=== PATIENT | male | born 1980 | race Caucasian/White ===

== ENCOUNTER 2023-03-30 17:55 | Emergency (ER) | payer OTHER, SELFPAY ==
[2023-03-30 18:06] VITALS: BP 170/122; PULSE 107; RESP 18; TEMP 37; O2SAT 99; BMI 45.4
--- NOTE | 2023-03-30 18:16 | CRLHL7_ITS ---
For Patients: As a result of the Century Cures Act, medical imaging exams and procedure reports are released immediately into your electronic medical record. You may view this report before your referring provider. If you have questions, please contact your health care provider. INDICATION: Left jaw swelling. TECHNIQUE: CT images of the neck following intravenous contrast. COMPARISON: None. FINDINGS: Diffuse enlargement and hyperenhancement of the left parotid gland. Inflammatory stranding in the left periparotid region. Thickening of the left platysma. No peripherally enhancing collection assessed abscess. No radiopaque stones along the left Stensen duct. Enlarged left level II lymph nodes, likely reactive. The nasopharynx, oropharynx, hypopharynx, and larynx are widely patent and without enhancing lesions. No thickening of the epiglottis or retropharyngeal edema. No enhancing lesions in the oral cavity or floor of mouth. The right parotid and submandibular glands are unremarkable. The thyroid gland is unremarkable. Limited images through the brain are without pathologic intracranial enhancement. Mild paranasal sinus mucosal disease. The mastoid air cells are clear. Mild cervical spondylosis. No aggressive osseous lesions. No concerning opacities in the visualized lungs. IMPRESSION: 1. Diffuse enlargement and hyperenhancement of the left parotid gland, compatible with parotitis. No abscess. No stone along the left Stensen duct. 2. Enlarged left level II lymph nodes, likely reactive. Please note that all CT scans at this facility use dose modulation, iterative reconstruction, and/or weight-based dosing when appropriate to reduce radiation dose to as low as reasonably achievable. Dictated by Easton Tolbert MD @ 03/30/2023 7:29:22 PM (Electronically Signed)
[2023-03-30 18:28] LABS: Basophils Absolute Auto 0.03 K/uL (0.00-0.30); Basophils Percent Auto 0.6 % (0.0-3.0); Eosinophils Absolute Auto 0.09 K/uL (0.00-0.50); Eosinophils Percent Auto 1.9 % (0.0-7.0); Hematocrit 44.6 % (37.0-53.0); Hemoglobin* 15.5 gm/dL (13.5-17.5); Immature Granulocytes Abs Auto 0.01 K/uL (0.00-0.30); Immature Granulocytes Pct Auto 0.2 %; Mean Corpuscular HGB Conc 35 gm/dL (32-36); Mean Corpuscular Hemoglobin 30 pg (26-34); Mean Corpuscular Volume 86 fL (80-100); Monocytes Percent Auto 9.2 % (0.0-11.0); Neutrophils Percent Auto 74.1 % (42.0-72.0); Platelet Count* 229 K/uL (140-440); RDW Coefficient of Variation % 12.2 % (11.5-15.5); Red Blood Count 5.18 m/uL (4.30-5.90); White Blood Count* 4.78 K/uL (4.50-11.00)
[2023-03-30 18:29] LABS: Slide Review Reflex No
[2023-03-30 18:32] LABS: Creatinine, Point-of-Care* 1.1 mg/dl (0.6-1.3)
[2023-03-30 18:51] LABS: Chloride* 103 mmol/L (96-114); Potassium* 3.9 mmol/L (3.6-5.1); Sodium* 141 mmol/L (135-149)
[2023-03-30 18:54] LABS: Anion Gap 10 mEq/L (7-15); Carbon Dioxide* 28 mmol/L (20-32); Est. Creatinine Clearance* 89.97; Estimated Glomerular Filt Rate 96 ml/min
[2023-03-30 18:55] LABS: Blood Urea Nitrogen* 17 mg/dL (5-24); Calcium* 9.6 mg/dL (8.4-10.6); Glucose* 96 mg/dL (60-115)
[2023-03-30 19:10] VITALS: RESP 16; O2SAT 99
--- NOTE | 2023-03-30 19:40 | ED.GENADULT ---
HPI - General Adult General Date Seen: 03/30/23 Chief complaint: Jaw Injury/Pain Stated complaint: swelling on face Time Seen by Provider: 03/30/23 18:15 Source: patient Mode of arrival: ambulatory Limitations: no limitations History of Present Illness HPI narrative: Patient is a 42-year-old male presenting to emergency department for left facial swelling. He states he 1st noted last night and has been gradually getting worse. He was concerned so he went to urgent care and they sent him here. Denies any fevers, chills, weakness, numbness, shortness of breath, dental problems. Denies ever having these symptoms before. States he feels like it worsened relatively rapidly. Does state it is painful to the touch. Related Data Home Medications Medication Instructions Recorded Confirmed ibuprofen 200 mg tablet 600 mg PO Q6H PRN 03/30/23 03/30/23 multivitamin (Daily Multi-Vitamin 1 tab PO QAM 03/30/23 03/30/23 tablet) Allergies Allergy/AdvReac Type Severity Reaction Status Date / Time No Known Drug Allergies Allergy Verified 03/30/23 16:48 Review of Systems Status of ROS: Reports: 10 or more systems reviewed and unremarkable except as noted in History and below Exam Narrative: Exam Narrative: Const: Well-nourished, Well-developed, in mild distress Eyes: PERRL, no conjunctival injection, and symmetrical lids HENT: Atraumatic external nose and ears. Moist mucous membranes. Large amount of swelling noted left jaw anterior to the left ear Neck: Symmetric, trachea midline, No thyromegaly. CVS: RRR, No murmurs or gallops. Peripheral pulses 2+ and equal in all extremities RESP: Unlabored respiratory effort. Clear to auscultation bilaterally. GI: Nontender/Nondistended, No rebound or guarding. MSK:Extremities w/o deformity, Normal Active ROM Skin: Warm, Dry. No rashes or lesions. Neuro: Normal Muscle tone, No focal neurological deficits. Psych: Awake, Alert, & Oriented x3. Appropriate mood and affect. Const: Vital Signs, click to edit/add: Vital Signs - 24 hr 03/30/23 18:06 Temperature 98.6 F Pulse Rate [Pulse Oximeter] 107 H Respiratory Rate 18 Blood Pressure [Ri ght Upper Arm] 170/122 H Pulse Oximetry 99 Oxygen Delivery Me thod Room Air Course Vital Signs Vital signs: Initial Vital Signs Temperature 98.6 F 03/30/23 18:06 Temperature Source Temporal Artery Scan 03/30/23 18:06 Pulse Rate 107 H 03/30/23 18:06 Pulse Rhythm Regular 03/30/23 18:06 Pulse Strength 3+ Normal 03/30/23 18:06 Respiratory Rate 18 03/30/23 18:06 Blood Pressure 170/122 H 03/30/23 18:06 Blood Pressure Mean 138 H 03/30/23 18:06 Blood Pressure Position Sitting 03/30/23 18:06 Pulse Oximetry 99 03/30/23 18:06 Oxygen Delivery Method Room Air 03/30/23 18:06 Vital Signs Temperature 98.6 F 03/30/23 18:06 Pulse Rate 107 H 03/30/23 18:06 Respiratory Rate 18 03/30/23 18:06 Blood Pressure 170/122 H 03/30/23 18:06 Pulse Oximetry 99 03/30/23 18:06 Oxygen Delivery Method Room Air 03/30/23 18:06 Temperature 98.6 F 03/30/23 18:06 Pulse Rate 107 H 03/30/23 18:06 Respiratory Rate 18 03/30/23 18:06 Blood Pressure 170/122 H 03/30/23 18:06 Pulse Oximetry 99 03/30/23 18:06 Oxygen Delivery Method Room Air 03/30/23 18:06 Medical Decision Making [facility] Narrative Medical decision making narrative: Patient is a 42-year-old male presenting for left facial swelling. First initial presentation appears to be a parotitis. Cannot rule out abscess though at this time patient considering how quickly it grew. On exam I do not see any purulent drainage in the mouth. It is mildly tender to palpation. CBC and BMP ordered showing no concerning abnormalities. We did do a point of care creatinine to more quickly evaluate kidney function so we can do the CT scan. CT scan returned showing parotitis. No obvious stone blocking the duct is seen. This is likely viral in nature. There are some reactive lymph nodes. he is not having any testicular issues. He is doing well why is a we discharged home. Mumps test is pending. Lab Data Labs: Lab Results 03/30/23 03/30/23 Range/Units 18:20 18:31 WBC 4.78 (4.50-11.00) K/uL RBC 5.18 (4.30-5.90) m/uL Hgb 15.5 (13.5-17.5) gm/dL Hct 44.6 (37.0-53.0) % MCV 86 (80-100) fL MCH 30 (26-34) pg MCHC 35 (32-36) gm/dL RDW Coeff of [place] 12.2 (11.5-15.5) % Plt Count 229 (140-440) K/uL Neut % (Auto) 74.1 H (42.0-72.0) % Lymph % (Auto) 14.0 L (20-44) % [place] % (Auto) 9.2 (0.0-11.0) % Eos % (Auto) 1.9 (0.0-7.0) % Baso % (Auto) 0.6 (0.0-3.0) % Neut # (Auto) 3.50 (1.7-7.0) K/uL Lymph # (Auto) 0.70 L (0.90-2.90) K/uL [place] # (Auto) 0.40 (0.00-0.90) K/UL Eos # (Auto) 0.09 (0.00-0.50) K/uL Baso # (Auto) 0.03 (0.00-0.30) K/uL Abs Immat Gran (auto) 0.01 (0.00-0.30) K/uL Imm/Tot Granulo (auto) 0.2 % Sodium 141 (135-149) mmol/L Potassium 3.9 (3.6-5.1) mmol/L Chloride 103 (96-114) mmol/L Carbon Dioxide 28 (20-32) mmol/L Anion Gap 10 (7-15) mEq/L BUN 17 (5-24) mg/dL Creatinine 1.0 (0.5-1.5) mg/dL Estimated Creat Clear 89.97 Estimated GFR 96 ml/min Glucose 96 (60-115) mg/dL Calcium 9.6 (8.4-10.6) mg/dL POC Creatinine 1.1 (0.6-1.3) mg/dl Imaging Data CT soft tissue neck: Radiologist's impression: 1. Diffuse enlargement and hyperenhancement of the left parotid gland, compatible with parotitis. No abscess. No stone along the left Stensen duct. 2. Enlarged left level II lymph nodes, likely reactive. Please note that all CT scans at this facility use dose modulation, iterative reconstruction, and/or weight-based dosing when appropriate to reduce radiation dose to as low as reasonably achievable. Dictated by Easton Tolbert MD @ 03/30/2023 7:29:22 PM Discharge Plan Discharge Clinical Impression: Parotiditis Patient Disposition: Home, Self-Care Condition: Stable Instructions: Mumps in Adults (ED) Additional Instructions: Take Tylenol and ibuprofen for pain. Use warm and hot packs on it she to help with symptoms. You can also try sucking on sour candies. Return to the emergency department for new or worsening symptoms. Mumps test is pending Prescriptions: No Action ibuprofen 200 mg tablet 600 mg PO Q6H PRN multivitamin [Daily Multi-Vitamin] Tablet 1 tab PO QAM Follow Up/Referrals: Provider,Not a Local [Primary Care Provider] - Stand Alone Forms: [employer] Info Instructions
[2023-03-30 21:08] VITALS: BP 154/74; PULSE 95; RESP 18; TEMP 36.8; O2SAT 99
[2023-03-30 21:09] VITALS: BP 154/74; PULSE 95; RESP 18; TEMP 36.8
== END 2023-03-30 21:09 | disposition home or self-care (01) ==
PROVIDERS: Emergency Provider Student in an Organized Health Care Education/Training Program
DX: K11.20 Sialoadenitis, unspecified (principal)
CPT/HCPCS: 36415; 70491; 80048; 82565; 85025; 86735; 99283; 99284; 99285; Q9967